=== PATIENT | female | born 1970 | race Caucasian/White ===

== ENCOUNTER 2019-01-06 11:59 | Day surgery (SDC) | payer MEDICARE ==
--- NOTE | 2019-01-06 07:37 | History and Physical - [place] ---
CHIEF COMPLAINT/HISTORY OF CHIEF COMPLAINT: This patient with a history of intractable lumbar radiculopathy has a spinal infusion system infusing Hydromorphone at 6.498 mg a day. Over the last number of refills and reprogramming's battery depletion was identified. She is here for battery replacement. PAST MEDICAL HISTORY: Chronic headaches, interstitial cystitis, and chronic urinary tract infections. PAST SURGICAL HISTORY: Abdominal surgery, appendectomy, gallbladder surgery, carpal tunnel release, and shoulder surgery. MEDICATIONS ON ADMISSION: List to be provided. ALLERGIES: None. FAMILY/PSYCHOSOCIAL HISTORY: Social history - Smoking and caffeine. Family history - Diabetes, coronary artery disease, hypertension, and cancer. SYSTEMS REVIEW: The patient is appropriate in no acute distress. The remainder of the systems review is positive for headaches, glasses, renal disease, liver disease, fibromyalgia, and depression. PHYSICAL EXAMINATION: Height is 5'3", weight is 250. No vital signs. HEENT: Within normal limits. LUNGS: Clear. HEART: Rapid and regular. ABDOMEN: Nontender. MUSCULOSKELETAL: Examination of the musculoskeletal system shows the pump in the left posterior gluteal margin. The incision is intact. No breakdown. Lower extremity bilateral chronic pain noted. NEUROLOGIC: Cranial nerves are intact. IMPRESSION: 1. INTRACTABLE LUMBAR RADICULOPATHY, ICD-10 CODE M54.16 AND M54.17. 2. IMPLANTED SPINAL INFUSION SYSTEM USING HYDROMORPHONE, BATTERY DEPLETION. PLAN: The patient is here for battery replacement on an outpatient basis. The risks, side effects and complications have been reviewed and discussed. JOB NUMBER: [id number] MTDD
[~2019-01-06 11:59] MED LIST: ACETAMINOPHEN 1,000 MG/100 ML BTL IVPB ONE; BUPIVACAINE HCL IV ONE; CLINDAMYCIN 600MG/50ML PREMIX 600 MG/50 ML BAG IVPB ONE; FAMOTIDINE 20MG TABLET PO ONE; HYDROMORPHONE HCL IV ONE; HYDROMORPHONE PF 2MG/ML AMP 0.008 MG in 0.9 % SODIUM CHLORIDE 10ML VIA 0.996 ML IV ONE; MECLIZINE 25 MG TABLET PO ONE; METOCLOPRAMIDE 10 MG TABLET PO ONE; [UNRECOGNIZED DRUG - OTHER] IV ONE
[2019-01-06] MEDS ORDERED: FENTANYL PF 100MCG/2ML VIAL IV ONE (12:00)
[2019-01-06] MEDS ORDERED: Clindamycin 600mg vial 150 MG/ML VIAL IVPB ONE (12:00)
[2019-01-06] MEDS ORDERED: LIDOCAINE 2% MDV (20MG/ML) 20ML VIAL IV ONE (12:00)
[2019-01-06] MEDS ORDERED: GLYCOPYRROLATE 0.2 MG/ML ML IV ONE (12:00)
[2019-01-06] MEDS ORDERED: *PACU ONLY* KETAMINE HCL 10 MG/ML (20ML) VIAL IV ONE (12:00)
[2019-01-06] MEDS ORDERED: PROPOFOL 10 MG/ML VIAL IV ONE (12:00)
[2019-01-06] MEDS ORDERED: MIDAZOLAM HCL 2MG/2ML VIAL IV ONE (12:00)
[2019-01-06] MEDS ORDERED: RINGERS SOLUTION,LACTATED 1,000 ML IV ONE (12:59)
[2019-01-06] MEDS ORDERED: BUPIVACAINE 0.5% W/EPI MPF 30 ML VIAL SQ ONE (14:40)
[2019-01-06] MEDS ORDERED: LIDOCAINE 1% W/EPI 1:200,000 MPF 30ML SQ ONE (14:40)
[2019-01-06] MEDS ORDERED: OXYCODONE/APAP 10MG-325MG TABLET PO ONE (15:05)
--- NOTE | 2019-01-08 15:51 | Operative Note ---
DATE OF SURGERY: 01/06/2019 PREOPERATIVE DIAGNOSES: 1. Intractable lumbar radiculopathy. 2. Intraspinal infusion system hydromorphone/bupivacaine battery depletion. OPERATION: 1. Fluoroscopic-guided incision, subcutaneous dissection, and removal and replacement of programmable pump left posterior gluteal margin. 2. Incision, revision, resection of spinal catheter. 3. Interface revised spinal catheter to new pump, 20 mL programmable prefilled hydromorphone/bupivacaine. Interface pump with catheter placed into pouch. 4. Securing pump into pouch access port 12-o'clock. 5. Diagnostic myelography with radiologic supervision and interpretation. 6. Programming of pump to deliver by continuous infusion hydromorphone flex dose q.6 h. bolus slow continuous 7.9 mg/day. Alarms reset. 7. Incision closure using Stratafix suture 2-0 fascia, 3-0 skin, Dermabond closure. SURGEON: Josué Jack DO ANESTHESIA: Local with sedation. ANESTHESIA PROVIDER: Elvi Worrell INDICATION: This patient presents with a history of intractable lumbar radiculopathy. Due to the failure of therapy, a spinal infusion system infusing hydromorphone and bupivacaine has been in place. Over the last number of refills, battery depletion noted. She is here for pump battery change. PROCEDURE: Intravenous line, vital sign monitoring, IV sedation by Anesthesia. Patient positioned prone. Sterile prep, sterile technique at the left posterior gluteal margin pump pouch. With the patient sedated, skin infiltrated, and after sterile prep, sterile technique, skin infiltrated, incision made, subcutaneous dissection was conducted to the pump pouch. The Dacron sleeve was opened. The pump was then exteriorized and from the indwelling catheter. A new 20 mL programmable pump prefilled hydromorphone/bupivacaine placed onto the field. The previous catheter was noted well within the pouch matted and kinked within the posterior scar and fascia. Because of this, the catheter was resected, revised, and a new catheter component interfaced to that part of the catheter which had been resected out. With the new revised catheter in place, the pump was interfaced to the revised catheter and placed into the pouch, secured to posterior fascia with nonabsorbable suture. A curved access 24-gauge Hester needle was inserted into the access port, and slightly less than 1 mL of catheter contents was aspirated clearing the catheter of opioid and CSF mixture. Diagnostic myelogram was performed confirming functionality. With the pump in the pouch, the incision was closed using Stratafix suture, 2-0 fascia, 3-0 skin, Dermabond closure. Pump programmed back to original parameters, flex dose q.6 h. bolus slow continuous hydromorphone/bupivacaine. Hydromorphone 7.9 mg/day. Alarms reset. She was transferred to the recovery room stable. No side effects from the procedure or sedation. She was monitored until stable and then discharge home. DISCHARGE INSTRUCTIONS: 1. Sites to remain clean and dry. No showering or bathing in any way that would disrupt dressings. If it happens, contact the clinic. 2. Standard medications resumed including the antibiotic Levaquin 500 mg once a day for 14 days. 3. Office to contact the patient in 5-7 days to set up a time in the next 7-10 days for us to evaluate the incisional site. Until then, keep activities low. All other instructions provided, numbers to contact given. She was then discharged. ANTONIO
== END 2019-01-06 15:40 | disposition home or self-care (01) ==
LOC: SUR 11:59
PROVIDERS: ATTEND Pain Medicine Interventional Pain Medicine
DX: M54.16 Radiculopathy, lumbar region (principal); Z45.1 Encounter for adjustment and management of infusion pump; M06.9 Rheumatoid arthritis, unspecified; E78.00 Pure hypercholesterolemia, unspecified; K21.9 Gastro-esophageal reflux disease without esophagitis; G47.33 Obstructive sleep apnea (adult) (pediatric); R05 Cough; F17.210 Nicotine dependence, cigarettes, uncomplicated; N30.10 Interstitial cystitis (chronic) without hematuria; E66.9 Obesity, unspecified
CPT/HCPCS: 62350; 62362; 01936; 62367; 85002; C1755; Q9967; C1772; J3010; J7120